=== PATIENT | female | born 1955 | race Caucasian/White ===

== ENCOUNTER 2022-03-09 10:55 | Emergency (ER) | payer MEDICARE, OTHER, SELFPAY ==
[2022-03-09 11:29] VITALS: BP 186/102; PULSE 79; RESP 15; TEMP 35.8; O2SAT 100; BMI 21.9
[2022-03-09 11:44] LABS: Add Manual Diff / Slide Review NO; Basophils Absolute Auto 100 /uL (0-100); Basophils Percent Auto 0.8 % (0-2); Eosinophils Absolute Auto 100 /uL (0-450); Eosinophils Percent Auto 0.8 % (2-4); Hematocrit 39.2 % (36-46); Hemoglobin 13.2 g/dL (12.0-16.0); Lymphocytes Absolute Auto 1200 /uL (1100-4500); Lymphocytes Percent Auto 16.5 % (25-40); Mean Corpuscular HGB Conc 33.7 % (30-36); Mean Corpuscular Hemoglobin 31.5 PG (26-34); Mean Corpuscular Volume 93.7 fL (80-100); Monocytes Absolute Auto 500 /uL (0-900); Monocytes Percent Auto 6.9 % (3-14); Neutrophils Absolute Auto 5500 /uL (1500-7000); Platelet Count 245 X10^3/uL (150-400); Red Blood Cell Count 4.19 X10^6/uL (4.0-5.2); Red Cell Distribution Width 13.4 % (11.6-14.8); White Blood Cell Count 7.3 X10^3/uL (4.5-11.0)
[2022-03-09 11:54] LABS: INR 1.1 (0.9-1.3); Prothrombin Time 12.4 SECONDS (10.1-12.7)
[2022-03-09 11:56] LABS: PTT Partial Thromboplastin Tim 31 SECONDS (26-36)
[2022-03-09 12:00] LABS: Alanine Aminotransferase 72 IU/L (<35); Albumin 4.5 g/dL (3.5-5.0); Albumin Globulin Ratio 1.3 (1.0-2.8); Alkaline Phosphatase 177 U/L (38-126); Aspartate Aminotransferase 56 IU/L (14-36); BUN Creatinine Ratio 14.1 (6-22); Bilirubin Total 0.9 mg/dL (0.2-1.3); Blood Urea Nitrogen 9 mg/dL (7-17); Calcium 9.5 mg/dL (8.4-10.2); Carbon Dioxide 25 mmol/L (22-32); Chloride 102 mmol/L (98-107); Estimated Glomerular Filt Rate > 60 mL/min (>60); Globulin 3.4 g/dL (1.7-4.1); Glucose 96 mg/dL (80-110); HEMOLYSIS 25 (0-50); Lipase 65 U/L (23-300); Potassium 4.5 mmol/L (3.4-5.1); Sodium 138 mmol/L (137-145); Total Protein 7.9 g/dL (6.3-8.2)
[2022-03-09 13:47] LABS: Bacteria Urine Few (2-10); RBC Urine 0-1/HPF (0-5/HPF); Squamous Epithelial Cell Urine 1-5 /HPF (0-5/HPF); WBC Urine 1-5/HPF (0-5/HPF)
[2022-03-09 13:48] LABS: Culture Indicated Urine Specimen Cultured
[2022-03-09 14:17] VITALS: BP 172/83; PULSE 83; O2SAT 100
--- NOTE | 2022-03-09 15:51 | DI.CT.S_ITS ---
PROCEDURE: CT ABDOMEN PELVIS W CON INDICATIONS: diverticulitis? transverse pelvic pain TECHNIQUE: After the administration of intravenous contrast, axial sections acquired from the lung bases to the pubic symphysis. Coronal and sagittal reformats were performed. For radiation dose reduction, the following was used: automated exposure control, adjustment of mA and/or kV according to patient size. COMPARISON: None. FINDINGS: Diverticulosis throughout the sigmoid colon. Centered on one of these diverticula in the distal sigmoid colon there is sigmoid colonic wall thickening and adjacent fat stranding with small volume free fluid also. Regional Vasa recta are mildly engorged. No evidence of abscess or perforation. No additional acute enteric abnormality. Cholecystectomy. No acute finding of the solid abdominal visceral structures. Nonaneurysmal atherosclerotic abdominal aorta. Urinary bladder normal. No acute or suspicious osseous lesion. IMPRESSION: Moderate sigmoid diverticulitis without evidence of perforation, abscess, or other associated complicating feature. Dictated by: Ezra Mccracken M.D. on 03/09/2022 at 16:41 Approved by: Ezra Mccracken M.D. on 03/09/2022 at 16:45
--- NOTE | 2022-03-09 15:54 | ED.ABDPAIN ---
HPI - Abdominal Pain <MICHA Burton - Last Filed: 03/09/22 18:12> General Chief Complaint: Abdominal Pain Stated Complaint: acute pain pelvic area Time Seen by Provider: 03/09/22 15:42 Source: patient Mode of arrival: Ambulatory History of Present Illness HPI narrative: This is a 66-year-old female with history of diverticulosis, diverticulitis with perforation of her sigmoid colon, she presents to the emergency department with 3 days of transverse lower abdominal pain, thinks that this is a flare of her diverticulitis again. States that 2 weeks ago she had a traumatic event happened to her puppy and it , this caused a lot of personal stress which patient states thinks was a trigger for this flare. She endorses nausea, tenderness of her transverse low abdominal and pelvic region. She states the dysuria started last night, states that she has not been able to eat food today and has been drinking water. Related Data Previous Rx's Medication Instructions Recorded ciprofloxacin HCl 500 mg tablet 500 mg PO BID 10 days #20 tabs 03/09/22 (Cipro) metronidazole 500 mg tablet 500 mg PO TID 10 days #30 tabs 03/09/22 ondansetron 4 mg disintegrating 4 mg PO Q8H PRN nausea and 03/09/22 tablet vomiting #10 tabs Allergies Allergy/AdvReac Type Severity Reaction Status Date / Time ibuprofen Allergy Verified 03/09/22 11:29 Review of Systems <MICHA Burton - Last Filed: 03/09/22 18:12> Review of Systems Narrative: Review of systems is negative for acute abnormalities unless otherwise noted in HPI Patient History <MICHA Burton - Last Filed: 03/09/22 18:12> Social History Smoking Status: Unknown if ever smoked Smoking Status: Unknown if ever smoked alcohol intake frequency: 0-2 drinks per day Substance Use Type: does not use Exam <MICHA Burton - Last Filed: 03/09/22 18:12> Narrative Exam Narrative: Reviewed vitals signs and nursing notes. General: cooperative, comfortable, in no acute distress, well groomed HEENT: symmetrical facial expressions, moist mucous membranes Cardiovascular: regular rate and rhythm, no peripheral edema, warm extremities Respiratory: normal effort, able to speak in complete sentences, without wheezing, stridor, or abnormal breath sounds. No retractions or tachypnea. GI: abdomen soft, tender to palpation across low abdomen lower left quadrant and right lower quadrant tenderness, nondistended, without masses, rebound tenderness or exquisite tenderness with exam. MSK: moves all extremities, neurovascularly intact, no weakness, normal tone , suprapubic tenderness Skin: brisk capillary refill, without pallor or erythema Neuro: normal speech and cognition, A&O x3, ambulatory, clear speech Psych: mental status is grossly normal, congruent mood, normal affect, pleasant and cooperative Initial Vital Signs Initial Vital Signs: Vital Signs Temperature 96.4 F L 03/09/22 11:29 Pulse Rate 79 03/09/22 11:29 Respiratory Rate 15 03/09/22 11:29 Blood Pressure 186/102 H 03/09/22 11:29 Pulse Oximetry 100 03/09/22 11:29 Oxygen Delivery Method 03/09/22 11:29 <Sunny Pacheco DO - Last Filed: 03/10/22 07:17> Initial Vital Signs Initial Vital Signs: Vital Signs Temperature 96.4 F L 03/09/22 11:29 Pulse Rate 79 03/09/22 11:29 Respiratory Rate 15 03/09/22 11:29 Blood Pressure 186/102 H 03/09/22 11:29 Pulse Oximetry 100 03/09/22 11:29 Oxygen Delivery Method 03/09/22 11:29 Course <MICHA Burton - Last Filed: 03/09/22 18:12> Orders Ordered: Discontinued Medications Acetaminophen (Acetaminophen 325 Mg Tablet) 975 mg PO NOW ONE Stop: 03/09/22 17:22 Last Admin: 03/09/22 17:24 Dose: 975 mg Documented By: SUNI Ciprofloxacin (Ciprofloxacin 250 Mg Tablet) 500 mg PO NOW ONE Stop: 03/09/22 15:54 Last Admin: 03/09/22 16:04 Dose: 500 mg Documented By: SUNI Lactated Ringer's (Lactated Ringers) 1,000 mls @ 1,000 mls/hr IV BOLUS ONE Stop: 03/09/22 16:50 Last Infusion: 03/09/22 17:25 Dose: 0 mls/hr Documented By: Admin: 03/09/22 16:04 Dose: 1,000 mls/hr Documented By: SUNI Ketorolac Tromethamine (Ketorolac 30 Mg/Ml Vial) 15 mg IV NOW ONE Stop: 03/09/22 15:52 Last Admin: 03/09/22 16:04 Dose: 15 mg Documented By: SUNI Metronidazole (Metronidazole 500 Mg Tablet) 500 mg PO NOW ONE Stop: 03/09/22 15:54 Last Admin: 03/09/22 16:04 Dose: 500 mg Documented By: SUNI Ondansetron HCl (Ondansetron 4 Mg/2 Ml Inj) 4 mg IV NOW ONE Stop: 03/09/22 15:52 Last Admin: 03/09/22 16:06 Dose: 4 mg Documented By: SUNI Vital Signs Vital signs: Vital Signs - 8 hr 03/09/22 11:29 03/09/22 14:17 03/09/22 16:16 Temperature 96.4 F L Pulse Rate 79 83 72 Respiratory Rate 15 Blood Pressure 186/102 H 172/83 H Pulse Oximetry 100 100 100 Oxygen Delivery Method Room Air Room Air 03/09/22 16:17 03/09/22 16:17 03/09/22 16:30 Temperature Pulse Rate 72 Respiratory Rate Blood Pressure 164/91 H 149/84 H Pulse Oximetry 100 Oxygen Delivery Method 03/09/22 16:30 03/09/22 17:35 Temperature Pulse Rate 69 78 Respiratory Rate 17 Blood Pressure 146/75 H Pulse Oximetry 100 96 Oxygen Delivery Method Room Air <Sunny Pacheco DO - Last Filed: 03/10/22 07:17> Orders Ordered: Discontinued Medications Acetaminophen (Acetaminophen 325 Mg Tablet) 975 mg PO NOW ONE Stop: 03/09/22 17:22 Last Admin: 03/09/22 17:24 Dose: 975 mg Documented By: SUNI Ciprofloxacin (Ciprofloxacin 250 Mg Tablet) 500 mg PO NOW ONE Stop: 03/09/22 15:54 Last Admin: 03/09/22 16:04 Dose: 500 mg Documented By: SUNI Lactated Ringer's (Lactated Ringers) 1,000 mls @ 1,000 mls/hr IV BOLUS ONE Stop: 03/09/22 16:50 Last Infusion: 03/09/22 17:25 Dose: 0 mls/hr Documented By: Admin: 03/09/22 16:04 Dose: 1,000 mls/hr Documented By: SUNI Ketorolac Tromethamine (Ketorolac 30 Mg/Ml Vial) 15 mg IV NOW ONE Stop: 03/09/22 15:52 Last Admin: 03/09/22 16:04 Dose: 15 mg Documented By: SUNI Metronidazole (Metronidazole 500 Mg Tablet) 500 mg PO NOW ONE Stop: 03/09/22 15:54 Last Admin: 03/09/22 16:04 Dose: 500 mg Documented By: SUNI Ondansetron HCl (Ondansetron 4 Mg/2 Ml Inj) 4 mg IV NOW ONE Stop: 03/09/22 15:52 Last Admin: 03/09/22 16:06 Dose: 4 mg Documented By: SUNI Vital Signs Vital signs: Vital Signs - 8 hr 03/09/22 11:29 03/09/22 14:17 03/09/22 16:16 Temperature 96.4 F L Pulse Rate 79 83 72 Respiratory Rate 15 Blood Pressure 186/102 H 172/83 H Pulse Oximetry 100 100 100 Oxygen Delivery Method Room Air Room Air 03/09/22 16:17 03/09/22 16:17 03/09/22 16:30 Temperature Pulse Rate 72 Respiratory Rate Blood Pressure 164/91 H 149/84 H Pulse Oximetry 100 Oxygen Delivery Method 03/09/22 16:30 03/09/22 17:35 Temperature Pulse Rate 69 78 Respiratory Rate 17 Blood Pressure 146/75 H Pulse Oximetry 100 96 Oxygen Delivery Method Room Air MDM - Abdominal Pain <Marylu Cabrera [facility] - Last Filed: 03/09/22 18:12> Lab Data Result diagrams: 03/09/22 11:36 03/09/22 11:36 Labs: Lab Results 03/09/22 03/09/22 03/09/22 Range/Units 11:36 11:36 11:36 WBC 7.3 (4.5-11.0) X10^3/uL RBC 4.19 (4.0-5.2) X10^6/uL Hgb 13.2 (12.0-16.0) g/dL Hct 39.2 (36-46) % MCV 93.7 (80-100) fL MCH 31.5 (26-34) PG MCHC 33.7 (30-36) % RDW 13.4 (11.6-14.8) % Plt Count 245 (150-400) X10^3/uL Neut % (Auto) 75.0 (50-75) % Lymph % (Auto) 16.5 L (25-40) % [place] % (Auto) 6.9 (3-14) % Eos % (Auto) 0.8 L (2-4) % Baso % (Auto) 0.8 (0-2) % Neut # (Auto) 5500 (9194-8235) /uL Lymph # (Auto) 1200 (4216-7538) /uL [place] # (Auto) 500 (0-900) /uL Eos # (Auto) 100 (0-450) /uL Baso # (Auto) 100 (0-100) /uL PT 12.4 (10.1-12.7) SECONDS INR 1.1 (0.9-1.3) APTT 31 (26-36) SECONDS Sodium 138 (137-145) mmol/L Potassium 4.5 (3.4-5.1) mmol/L Chloride 102 (98-107) mmol/L Carbon Dioxide 25 (22-32) mmol/L BUN 9 (7-17) mg/dL Creatinine 0.64 (0.52-1.04) mg/dL Estimated GFR > 60 (>60) mL/min BUN/Creatinine Ratio 14.1 (6-22) Glucose 96 (80-110) mg/dL Calcium 9.5 (8.4-10.2) mg/dL Total Bilirubin 0.9 (0.2-1.3) mg/dL AST 56 H (14-36) IU/L ALT 72 H (<35) IU/L Alkaline Phosphatase 177 H (38-126) U/L C-Reactive Protein (<1.0) mg/dL Total Protein 7.9 (6.3-8.2) g/dL Albumin 4.5 (3.5-5.0) g/dL Globulin 3.4 (1.7-4.1) g/dL Albumin/Globulin Ratio 1.3 (1.0-2.8) Lipase 65 (23-300) U/L Procalcitonin (<0.5) ng/mL Urine RBC (0-5/HPF) Urine WBC (0-5/HPF) Ur Squamous Epith Cells (0-5/HPF) Urine Bacteria (None) Ur Culture Indicated? 03/09/22 03/09/22 03/09/22 Range/Units 11:46 11:56 11:56 WBC (4.5-11.0) X10^3/uL RBC (4.0-5.2) X10^6/uL Hgb (12.0-16.0) g/dL Hct (36-46) % MCV (80-100) fL MCH (26-34) PG MCHC (30-36) % RDW (11.6-14.8) % Plt Count (150-400) X10^3/uL Neut % (Auto) (50-75) % Lymph % (Auto) (25-40) % [place] % (Auto) (3-14) % Eos % (Auto) (2-4) % Baso % (Auto) (0-2) % Neut # (Auto) (4571-1143) /uL Lymph # (Auto) (0553-3633) /uL [place] # (Auto) (0-900) /uL Eos # (Auto) (0-450) /uL Baso # (Auto) (0-100) /uL PT (10.1-12.7) SECONDS INR (0.9-1.3) APTT (26-36) SECONDS Sodium (137-145) mmol/L Potassium (3.4-5.1) mmol/L Chloride (98-107) mmol/L Carbon Dioxide (22-32) mmol/L BUN (7-17) mg/dL Creatinine (0.52-1.04) mg/dL Estimated GFR (>60) mL/min BUN/Creatinine Ratio (6-22) Glucose (80-110) mg/dL Calcium (8.4-10.2) mg/dL Total Bilirubin (0.2-1.3) mg/dL AST (14-36) IU/L ALT (<35) IU/L Alkaline Phosphatase (38-126) U/L C-Reactive Protein 6.7 H (<1.0) mg/dL Total Protein (6.3-8.2) g/dL Albumin (3.5-5.0) g/dL Globulin (1.7-4.1) g/dL Albumin/Globulin Ratio (1.0-2.8) Lipase (23-300) U/L Procalcitonin 0.05 (<0.5) ng/mL Urine RBC 0-1/hpf (0-5/HPF) Urine WBC 1-5/hpf (0-5/HPF) Ur Squamous Epith Cells 1-5 /hpf (0-5/HPF) Urine Bacteria Few (2-10) H (None) Ur Culture Indicated? Specimen cultured Point of care testing: Urine Dip Bedside Urine Glucose Negative Bedside Urine Bilirubin - Negative Bedside Urine Ketone - Negative Bedside Urine Occult Blood +/- Bedside Urine pH 6.0 Bedside Urine Protein - Negative Bedside Urine Urobilinogen - Negative Bedside Urine Nitrite - Negative Bedside Urine Leukocytes ++ [address] scan - abdomen/pelvis: Radiologist's Impression: PROCEDURE:? CT ABDOMEN PELVIS W CON ? INDICATIONS:? diverticulitis? transverse pelvic pain ? TECHNIQUE:? After the administration of intravenous contrast, axial sections acquired from the lung bases to the pubic symphysis.? Coronal and sagittal reformats were performed.? For radiation dose reduction, the following was used:? automated exposure control, adjustment of mA and/or kV according to patient size.? ? COMPARISON:? None. ? FINDINGS:? ? Diverticulosis throughout the sigmoid colon.? Centered on one of these diverticula in the distal sigmoid colon there is sigmoid colonic wall thickening and adjacent fat stranding with small volume free fluid also.? Regional Vasa recta are mildly engorged.? No evidence of abscess or perforation.? No additional acute enteric abnormality.? Cholecystectomy.? No acute finding of the solid abdominal visceral structures.? Nonaneurysmal atherosclerotic abdominal aorta.? Urinary bladder normal.? No acute or suspicious osseous lesion. ? IMPRESSION:? ? Moderate sigmoid diverticulitis without evidence of perforation, abscess, or other associated complicating feature.? ? ? Dictated by: Ezra Mccracken M.D. on 03/09/2022 at 16:41 ? ? Approved by: Ezra Mccracken M.D. on 03/09/2022 at 16:45 ? [facility] Narrative Medical decision making narrative: This is a 66-year-old female with history of diverticulosis without diverticulitis in the past who presents to the emergency department complaining of transverse lower abdominal pain for the last 3 days. She has a history of perforated diverticulitis with history of diverticulosis 6 years ago. States that she had a stressful event happened in the family 2 weeks ago and she is had some inflammatory colitis since. No leukocytosis or anemia on her lab work, she is not had any blood in her stool, her AST and ALT are mildly elevated without any priors to compare to 56 and 72, alkaline phosphatase is 177, CRP is 6.7, no elevation of her lipase, dysuria started yesterday, she had small amount of bacteria in her urine. CT abdomen pelvis is positive for moderate sigmoid diverticulitis without evidence of perforation, abscess or other associated feature. Patient was given 1 L of normal saline, Zofran, 15 mg of Toradol, Tylenol, 500 mg of ciprofloxacin, 500 mg of Flagyl. Patient has a history of this, she states that she should be adequate for pain control with Cipro, Flagyl, Zofran. She was given strict return precautions, she does not have right upper abdominal pain. CT without any acute abnormal findings. No peritoneal signs on abdominal exam. Patient remains p.o. tolerant. Serial abdominal exam without increase in abdominal pain. Given history and exam, low suspicion for acute abdominal process, such as acute cholecystitis, pancreatitis, perforated viscus, atypical appendicitis, colitis, or torsion. Extensive conversation about ER return precautions and need for close follow-up. Patient is appropriate and amenable to discharge home. Vital signs are stable on repeat examination is unremarkable. Patient has been informed of results. Patient has been given strict return to ER precautions for any new or worsening symptoms. Patient understands to follow up closely with outpatient providers as instructed. Patient understands plan and agrees to discharge home. All questions and concerns answered at this time. <Sunny Pacheco, - Last Filed: 03/10/22 07:17> Lab Data Labs: Lab Results 03/09/22 03/09/22 03/09/22 Range/Units 11:36 11:36 11:36 WBC 7.3 (4.5-11.0) X10^3/uL RBC 4.19 (4.0-5.2) X10^6/uL Hgb 13.2 (12.0-16.0) g/dL Hct 39.2 (36-46) % MCV 93.7 (80-100) fL MCH 31.5 (26-34) PG MCHC 33.7 (30-36) % RDW 13.4 (11.6-14.8) % Plt Count 245 (150-400) X10^3/uL Neut % (Auto) 75.0 (50-75) % Lymph % (Auto) 16.5 L (25-40) % [place] % (Auto) 6.9 (3-14) % Eos % (Auto) 0.8 L (2-4) % Baso % (Auto) 0.8 (0-2) % Neut # (Auto) 5500 (6127-8894) /uL Lymph # (Auto) 1200 (9098-4284) /uL [place] # (Auto) 500 (0-900) /uL Eos # (Auto) 100 (0-450) /uL Baso # (Auto) 100 (0-100) /uL PT 12.4 (10.1-12.7) SECONDS INR 1.1 (0.9-1.3) APTT 31 (26-36) SECONDS Sodium 138 (137-145) mmol/L Potassium 4.5 (3.4-5.1) mmol/L Chloride 102 (98-107) mmol/L Carbon Dioxide 25 (22-32) mmol/L BUN 9 (7-17) mg/dL Creatinine 0.64 (0.52-1.04) mg/dL Estimated GFR > 60 (>60) mL/min BUN/Creatinine Ratio 14.1 (6-22) Glucose 96 (80-110) mg/dL Calcium 9.5 (8.4-10.2) mg/dL Total Bilirubin 0.9 (0.2-1.3) mg/dL AST 56 H (14-36) IU/L ALT 72 H (<35) IU/L Alkaline Phosphatase 177 H (38-126) U/L C-Reactive Protein (<1.0) mg/dL Total Protein 7.9 (6.3-8.2) g/dL Albumin 4.5 (3.5-5.0) g/dL Globulin 3.4 (1.7-4.1) g/dL Albumin/Globulin Ratio 1.3 (1.0-2.8) Lipase 65 (23-300) U/L Procalcitonin (<0.5) ng/mL Urine RBC (0-5/HPF) Urine WBC (0-5/HPF) Ur Squamous Epith Cells (0-5/HPF) Urine Bacteria (None) Ur Culture Indicated? 03/09/22 03/09/22 03/09/22 Range/Units 11:46 11:56 11:56 WBC (4.5-11.0) X10^3/uL RBC (4.0-5.2) X10^6/uL Hgb (12.0-16.0) g/dL Hct (36-46) % MCV (80-100) fL MCH (26-34) PG MCHC (30-36) % RDW (11.6-14.8) % Plt Count (150-400) X10^3/uL Neut % (Auto) (50-75) % Lymph % (Auto) (25-40) % [place] % (Auto) (3-14) % Eos % (Auto) (2-4) % Baso % (Auto) (0-2) % Neut # (Auto) (3307-8526) /uL Lymph # (Auto) (8950-0088) /uL [place] # (Auto) (0-900) /uL Eos # (Auto) (0-450) /uL Baso # (Auto) (0-100) /uL PT (10.1-12.7) SECONDS INR (0.9-1.3) APTT (26-36) SECONDS Sodium (137-145) mmol/L Potassium (3.4-5.1) mmol/L Chloride (98-107) mmol/L Carbon Dioxide (22-32) mmol/L BUN (7-17) mg/dL Creatinine (0.52-1.04) mg/dL Estimated GFR (>60) mL/min BUN/Creatinine Ratio (6-22) Glucose (80-110) mg/dL Calcium (8.4-10.2) mg/dL Total Bilirubin (0.2-1.3) mg/dL AST (14-36) IU/L ALT (<35) IU/L Alkaline Phosphatase (38-126) U/L C-Reactive Protein 6.7 H (<1.0) mg/dL Total Protein (6.3-8.2) g/dL Albumin (3.5-5.0) g/dL Globulin (1.7-4.1) g/dL Albumin/Globulin Ratio (1.0-2.8) Lipase (23-300) U/L Procalcitonin 0.05 (<0.5) ng/mL Urine RBC 0-1/hpf (0-5/HPF) Urine WBC 1-5/hpf (0-5/HPF) Ur Squamous Epith Cells 1-5 /hpf (0-5/HPF) Urine Bacteria Few (2-10) H (None) Ur Culture Indicated? Specimen cultured Point of care testing: Urine Dip Bedside Urine Glucose Negative Bedside Urine Bilirubin - Negative Bedside Urine Ketone - Negative Bedside Urine Occult Blood +/- Bedside Urine pH 6.0 Bedside Urine Protein - Negative Bedside Urine Urobilinogen - Negative Bedside Urine Nitrite - Negative Bedside Urine Leukocytes ++ 125 Esterase Discharge Plan Departure Patient Disposition: Home Clinical Impression: Diverticulitis Instructions: Diverticulitis, Clear Liquid Diet Activity Restrictions/Additional Instructions: *You have been diagnosed with diverticulitis without perforation or abscess. I have given you 10 days of Cipro and Flagyl with Zofran as needed for nausea. Please take other medications for pain and your symptoms as needed. They hydrated, please follow a clear liquid diet until your symptoms start to improve and gradually increase that. Please return for any new or worsening symptoms, I hope you start feeling better soon, your bladder infection should get better on the ciprofloxacin as well, we have done a culture of this urine and we will call you if there is something that grows out that is not covered with your antibiotics. Please schedule another colonoscopy when you get home, I hope that this is just a flare of inflammation, the antibiotic should have feeling better by tomorrow. *What to do: *Please continue to take your regular medications as directed. [x ] New medication prescriptions sent to your pharmacy: [[facility] ] [ ] New medication written as a paper prescription [ ] No new medications given *Please follow up with your primary care provider in 2-3 days, call for an appointment. Let them know you were seen in the Emergency Department and that we asked that you be seen for follow-up. We will electronically transmit a record of today's note if your PCP is in our system *If you do not have a primary care provider please contact [phone] to establish care with one of the [facility] primary care providers. *Return to Emergency Department if you should have any new, worsening, or concerning symptoms, such as [fever greater than 101F, chills, worsening pain, persistent vomiting or other bothersome symptoms]. Prescriptions: New ciprofloxacin HCl [Cipro] 500 mg tablet 500 mg PO BID 10 Days Qty: 20 0RF metronidazole 500 mg tablet 500 mg PO TID 10 Days Qty: 30 0RF ondansetron 4 mg tablet,disintegrating 4 mg PO Q8H PRN (Reason: nausea and vomiting) Qty: 10 0RF Visit Report Forms: Patient Portal/API <Sunny Pacheco DO - Last Filed: 03/10/22 07:17> Cosign ED Attending Cosignature Attestation: I was immediately available in the department for consultation. This documentation has been reviewed and I agree with assessment and plan. Supervised by Sunny Pacheco DO
[2022-03-09] MEDS: KETOROLAC 30 MG/ML VIAL 15 MG IV (16:04)
[2022-03-09] MEDS: LACTATED RINGERS 1,000 ML 1000 ML IV (16:04)
[2022-03-09] MEDS: metroNIDAZOLE 500 MG TABLET PO (16:04)
[2022-03-09] MEDS: CIPROFLOXACIN 250 MG TABLET 500 MG PO (16:04)
[2022-03-09] MEDS: ONDANSETRON 4 MG/2 ML INJ IV (16:06)
[2022-03-09 16:13] LABS: C-Reactive Protein Quant 6.7 mg/dL (<1.0)
[2022-03-09 16:16] VITALS: PULSE 72; O2SAT 100
[2022-03-09 16:17] VITALS: BP 164/91; PULSE 72; O2SAT 100
[2022-03-09 16:27] LABS: Procalcitonin 0.05 ng/mL (<0.5)
[2022-03-09 16:30] VITALS: BP 149/84; PULSE 69; O2SAT 100
[2022-03-09] MEDS: ACETAMINOPHEN 325 MG TABLET 975 MG PO (17:24)
[2022-03-09 17:35] VITALS: BP 146/75; PULSE 78; RESP 17; O2SAT 96
== END 2022-03-09 17:36 | disposition home or self-care (01) ==
PROVIDERS: Emergency Medicine; Emergency Provider Nurse Practitioner Critical Care Medicine
DX: K57.92 Diverticulitis of intestine, part unspecified, without perforation or abscess without bleeding (principal); R10.30 Lower abdominal pain, unspecified
CPT/HCPCS: 36415; 74177; 80053; 81003; 81015; 83690; 84145; 85025; 85610; 85730; 86140; 87086; 93005; 96361; 96374; 96375; 99284; J1885; J2405; Q9967